=== PATIENT | female | born 1975 | race Caucasian/White ===

== ENCOUNTER → 2017-02-13 | Outpatient (CLI) | payer BC ==
[2017-02-13 18:55] LABS: CH 31.9; CHCM 34.1; HCT 42.4 % (34.0-46.0); HDW 2.47; HGB 14.5 gm/dL (11.4-16.0); MCH 32.2 pg (25.0-35.0); MCHC 34.3 g/dL (31.0-37.0); MCV 94.1 fL (80.0-100.0); Mean Platelet Volume 7.2; RBC 4.51 m/uL (3.80-5.40); RDW 12.8 % (11.5-15.5); WBC 13.4 k/uL (3.8-10.6)
== END ==
LOC: MMGSC 13:57
PROVIDERS: ATTEND Obstetrics & Gynecology
DX: N92.6 Irregular menstruation, unspecified (principal)
CPT/HCPCS: 36415; 82670; 83001; 84439; 84443; 85027

== ENCOUNTER → 2017-03-08 | Outpatient (CLI) | payer BC ==
--- NOTE | 2017-03-11 10:09 | MM ---
Reason for exam: screening (asymptomatic). Last mammogram was performed 1 year and 1 month ago. History: Taking hormonal contraceptives for 1 year. Physical Findings: A clinical breast exam by your physician is recommended on an annual basis and results should be correlated with mammographic findings. MG Screening Mammo w CAD Bilateral CC and MLO view(s) were taken. Prior study comparison: February 20, 2016, bilateral MG screening mammo w CAD. There are scattered fibroglandular densities. No significant changes when compared with prior studies. ASSESSMENT: Negative, BI-RAD 1 RECOMMENDATION: Routine screening mammogram of both breasts in 1 year.
== END | disposition home or self-care (01) ==
LOC: RADMAMWWP 16:17
PROVIDERS: ATTEND Obstetrics & Gynecology
DX: Z12.31 Encounter for screening mammogram for malignant neoplasm of breast (principal)

== ENCOUNTER → 2017-04-04 | Outpatient (CLI) | payer BC ==
[2017-04-04 16:46] LABS: Basophils # (A) 0.1 k/uL (0-0.2); Basophils % (A) 1 %; CHCM 33.8; Eosinophils # (A) 0.2 k/uL (0-0.7); Eosinophils % (A) 2 %; HCT 43.5 % (34.0-46.0); HDW 2.42; HGB 14.4 gm/dL (11.4-16.0); Luc % (Auto) 2; Lymphocytes # (A) 2.9 k/uL (1.0-4.8); Lymphocytes % (A) 26 %; MCH 32.3 pg (25.0-35.0); Mean Platelet Volume 7.3; Monocytes # (A) 0.6 k/uL (0-1.0); Monocytes % (A) 6 %; Neutrophils # (A) 7.5 k/uL (1.3-7.7); Neutrophils % (A) 65 %; RBC 4.44 m/uL (3.80-5.40); RDW 13.3 % (11.5-15.5); WBC 11.5 k/uL (3.8-10.6); WBC (Perox) 11.08
== END | disposition home or self-care (01) ==
LOC: LABPAT 16:12
PROVIDERS: ATTEND Obstetrics & Gynecology
DX: Z01.812 Encounter for preprocedural laboratory examination (principal)
CPT/HCPCS: 36415; 85025

== ENCOUNTER 2017-04-08 06:54 | Day surgery (SDC) | payer BC ==
[2017-04-05 12:52] VITALS: BMI 29.5
[~2017-04-08 06:54] MED LIST: HYDROmorphone 0.5 MG/0.5 ML SYRINGE IVP PRN; Pre Op ABX Message 1 EACH MISC MISCELLANE ONE
[2017-04-08] MEDS: LIDOCAINE 1% 20 ML VIAL (10MG/ML) FOR IV START INTRADERMA PRN ×2 (07:35→07:42)
[2017-04-08] MEDS: LACTATED RINGERS 1,000 ML IV SCH ×2 (07:40→10:22)
[2017-04-08] MEDS ORDERED: MIDAZOLAM 2 MG/2 ML VIAL IV ONE ×2 (07:40→07:43)
[2017-04-08] MEDS: DEXAMETHASONE SOD PHOSPHATE 10 MG/ML 1 ML VIAL IV ONE ×2 (07:40→07:43)
[2017-04-08] MEDS: SCOPOLAMINE 1.5MG/72HR PATCH TRANSDERM ONE ×2 (07:40→07:44)
[2017-04-08] MEDS: ONDANSETRON 4 MG/2 ML VIAL IVP ONE ×2 (07:40→07:43)
[2017-04-08] MEDS ORDERED: PROPOFOL 10 MG/ML 20 ML VIAL IV ONE (08:00)
[2017-04-08] MEDS ORDERED: fentaNYL (PF) 50 MCG/ML 2 ML AMP ONE (08:00)
[2017-04-08] MEDS ORDERED: MIDAZOLAM 2 MG/2 ML VIAL ONE (08:00)
[2017-04-08] MEDS ORDERED: KETOROLAC 30 MG/ML 1 ML VIAL ONE (08:00)
[2017-04-08] MEDS ORDERED: LIDOCAINE 1% INJ 10MG/ML (20 ML MDV) ONE (08:00)
[2017-04-08] MEDS ORDERED: IODINE/POTASS IOD (LUGOLS) BTL TOPICAL ONE (08:17)
[2017-04-08] MEDS ORDERED: BUPIVACAIN-EPI 0.25%-1:200,000 30 ML VIAL SQ ONE ×2 (08:17)
[2017-04-08] MEDS ORDERED: FERRIC SUBSULFATE (MONSELS) JAR TOPICAL ONE (08:44)
--- NOTE | 2017-04-08 08:51 | P.OP ---
Date of Procedure: 04/08/17 Preoperative Diagnosis: CIN3 Postoperative Diagnosis: Same Procedure(s) Performed: Cervical cold knife cone biopsy Anesthesia: MAC Surgeon: Alice Rocha Estimated Blood Loss (ml): 50 IV fluids (ml): 200 Urine output (ml): 10 Pathology: other (Cervical cone biopsy) Condition: stable Disposition: PACU Operative Findings: Large, patulous cervix with wide transformation zone. IUD in place. Third degree cervical uterine prolapse. Description of Procedure: After the patient and her family were met in the preoperative holding area and all questions were answered, she was taken to the operating room where anesthetic was administered without incident. She was then positioned, prepped and draped in the dorsal lithotomy position. Bladder was drained for a small amount of urine. Weighted speculum was placed in the vagina and the cervix was grasped anteriorly with a single-tooth tenaculum. Paracervical block with lidocaine plus epinephrine was placed. IUD strings were noted. Stay sutures were placed at the 3 and 9 o'clock position using 2-0 Vicryl. Lugol solution was applied to the cervix. Of note the cervix is quite large and patulous. There was third degree cervical uterine prolapse noted. The transformation zone was very easily visualized. 11 blade scalpel was utilized to incise the cervix immediately lateral to the transformation zone circumferentially. This was angled in in a conelike manner. With removal of the IUD was also incidentally removed. The uterus was sounded at this point to an additional depth of 7 cm. The IUD was bathed in Betadine solution and was reinserted without difficulty. Electrocautery was then utilized at the base of the cone biopsy which was quite large. This controlled most of the bleeding however 3 additional small phjled-ti-tjwul sutures were placed from the 3:00 to 10 o' clock position to control bleeding. Hemostasis was then noted. Monsel solution was then applied to the entire base of the cone biopsy. Stay sutures were tied down. All counts reported to me as correct by the operating room staff. The patient was awoken from anesthetic without incident and transported to the recovery area in stable condition.
[2017-04-08 09:02] VITALS: RESP 16; TEMP 97
[2017-04-08 10:13] VITALS: BP 133/71; PULSE 84
== END 2017-04-08 11:20 | disposition home or self-care (01) ==
LOC: OR 06:54
PROVIDERS: ATTEND Obstetrics & Gynecology
DX: D06.0 Carcinoma in situ of endocervix (principal); N81.2 Incomplete uterovaginal prolapse; Z97.5 Presence of (intrauterine) contraceptive device
CPT/HCPCS: 57520; 81025; 88307; J2250; J1100; J2405; J2001; J3010; J1885; J2704

== ENCOUNTER → 2017-05-15 | Outpatient (CLI) | payer BC ==
[2017-05-15 18:45] LABS: Basophils # (A) 0.1 k/uL (0-0.2); Basophils % (A) 1 %; CH 31.2; CHCM 32.9; Eosinophils # (A) 0.2 k/uL (0-0.7); Eosinophils % (A) 2 %; HCT 41.3 % (34.0-46.0); HDW 2.42; Luc % (Auto) 1; Lymphocytes # (A) 2.8 k/uL (1.0-4.8); Lymphocytes % (A) 28 %; MCH 32.3 pg (25.0-35.0); MCHC 33.9 g/dL (31.0-37.0); MCV 95.4 fL (80.0-100.0); Mean Platelet Volume 7.7; Monocytes # (A) 0.4 k/uL (0-1.0); Monocytes % (A) 4 %; Neutrophils # (A) 6.6 k/uL (1.3-7.7); Neutrophils % (A) 65 %; RBC 4.33 m/uL (3.80-5.40); RDW 14.1 % (11.5-15.5); WBC 10.1 k/uL (3.8-10.6); WBC (Perox) 10.15
[2017-05-15 18:47] LABS: ALT 35 U/L (9-52); AST 28 U/L (14-36); Alkaline Phosphatase 48 U/L (38-126); Anion Gap 11 mmol/L; Blood Urea Nitrogen 14 mg/dL (7-17); Calcium 9.1 mg/dL (8.4-10.2); Carbon Dioxide 24 mmol/L (22-30); Chloride 103 mmol/L (98-107); Glucose 134 mg/dL (74-99); Non-African American GFR(MDRD) >60 (>60 ml/min/1.73 sqM); Potassium 3.9 mmol/L (3.5-5.1); Sodium 138 mmol/L (137-145); Total Protein 6.9 g/dL (6.3-8.2)
== END | disposition home or self-care (01) ==
LOC: MMGSC 13:38
PROVIDERS: ATTEND Obstetrics & Gynecology
DX: Z01.812 Encounter for preprocedural laboratory examination (principal); C53.9 Malignant neoplasm of cervix uteri, unspecified
CPT/HCPCS: 36415; 80053; 85025

== ENCOUNTER → 2018-05-19 | Outpatient (CLI) | payer BC ==
--- NOTE | 2018-05-21 10:10 | MM ---
Reason for exam: screening (asymptomatic). Last mammogram was performed 1 year and 2 months ago. History: Taking hormonal contraceptives for 1 year. Physical Findings: A clinical breast exam by your physician is recommended on an annual basis and results should be correlated with mammographic findings. MG Screening Mammo w CAD Bilateral CC and MLO view(s) were taken. Prior study comparison: March 08, 2017, bilateral MG screening mammo w CAD. February 20, 2016, bilateral MG screening mammo w CAD. There are scattered fibroglandular densities. No significant changes when compared with prior studies. ASSESSMENT: Benign, BI-RAD 2 RECOMMENDATION: Routine screening mammogram of both breasts in 1 year.
== END ==
LOC: RADMAMWWP 16:27
PROVIDERS: ATTEND Obstetrics & Gynecology
DX: Z12.31 Encounter for screening mammogram for malignant neoplasm of breast (principal)
CPT/HCPCS: 77067

== ENCOUNTER → 2019-12-08 | Outpatient (CLI) | payer BC ==
--- NOTE | 2019-12-10 11:17 | MM ---
Reason for exam: screening (asymptomatic). Last mammogram was performed 1 year and 7 months ago. History: Patient has history of other cancer at age 41. Took hormonal contraceptives for 1 year beginning at age 28. Physical Findings: A clinical breast exam by your physician is recommended on an annual basis and results should be correlated with mammographic findings. MG Screening Mammo w CAD Bilateral CC and MLO view(s) were taken. Prior study comparison: May 19, 2018, bilateral MG screening mammo w CAD. March 08, 2017, bilateral MG screening mammo w CAD. There are scattered fibroglandular densities. There is no discrete abnormality. ASSESSMENT: Negative, BI-RAD 1 RECOMMENDATION: Routine screening mammogram of both breasts in 1 year.
== END | disposition home or self-care (01) ==
LOC: RADMAMWWP 08:10
PROVIDERS: ATTEND Obstetrics & Gynecology
DX: Z12.31 Encounter for screening mammogram for malignant neoplasm of breast (principal)
CPT/HCPCS: 77067

== ENCOUNTER → 2021-01-19 | Outpatient (CLI) | payer BC ==
--- NOTE | 2021-01-23 08:16 | MM ---
Reason for exam: screening (asymptomatic). Last mammogram was performed 1 year and 1 month ago. History: Patient is postmenopausal and has history of other cancer at age 42. Took hormonal contraceptives for 1 year beginning at age 28. Physical Findings: A clinical breast exam by your physician is recommended on an annual basis and results should be correlated with mammographic findings. MG 3D Screening Mammo W/Cad Bilateral CC and MLO view(s) were taken. Prior study comparison: December 08, 2019, bilateral MG screening mammo w CAD. May 19, 2018, bilateral MG screening mammo w CAD. There are scattered fibroglandular densities. There is no discrete abnormality. No significant changes when compared with prior studies. ASSESSMENT: Negative, BI-RAD 1 RECOMMENDATION: Routine screening mammogram of both breasts in 1 year.
== END | disposition home or self-care (01) ==
LOC: RADMAMWWP 09:24
PROVIDERS: ATTEND Obstetrics & Gynecology
DX: Z12.31 Encounter for screening mammogram for malignant neoplasm of breast (principal); Z78.0 Asymptomatic menopausal state; Z85.9 Personal history of malignant neoplasm, unspecified; Z79.3 Long term (current) use of hormonal contraceptives
CPT/HCPCS: 77063; 77067

== ENCOUNTER → 2022-02-23 | Outpatient (CLI) | payer BC ==
--- NOTE | 2022-02-27 09:34 | MM ---
Reason for Exam: Screening (asymptomatic). Last mammogram was performed 1 year(s) and 2 month(s) ago. Patient History: Menarche at age 13. First Full-Term at age 27. Left ovary removed at age 42. Right ovary removed at age 42. Hysterectomy at age 42. Postmenopausal. Patient has history of breast feeding. Other cancer, age 42. Hormonal Contraceptives for 1 year from age 28 until age 29. Risk Values: Gina 5 year model risk: 0.9%. NCI Lifetime model risk: 10.5%. Prior Study Comparison: 02/20/2016 Bilateral Screening Mammogram, [facility]. 03/08/2017 Bilateral Screening Mammogram, [facility]. 05/19/2018 Bilateral Screening Mammogram, [facility]. 12/08/2019 Bilateral Screening Mammogram, [facility]. 01/19/2021 Bilateral Screening Mammogram, [facility]. Tissue Density: There are scattered fibroglandular densities. Findings: Analyzed By CAD. No suspicious groups of microcalcifications, spiculated or lobular masses, architectural distortion or other secondary signs of malignancy are mammographically apparent. Overall Assessment: Negative, BI-RAD 1 Management: Screening Mammogram of both breasts in 1 year. A negative mammogram report should not preclude additional follow up of suspicious palpable abnormalities. Patient should continue monthly self breast exam. A clinical breast exam by your physician is recommended on an annual basis and results should be correlated with mammographic findings. Electronically signed and approved by: Isma Larson D.O. Radiologis
== END | disposition home or self-care (01) ==
LOC: RADMAMWWP 11:30
PROVIDERS: ATTEND Obstetrics & Gynecology
DX: Z12.31 Encounter for screening mammogram for malignant neoplasm of breast (principal); Z78.0 Asymptomatic menopausal state; Z85.89 Personal history of malignant neoplasm of other organs and systems
CPT/HCPCS: 77063; 77067

== ENCOUNTER → 2023-07-08 | Outpatient (CLI) | payer BC ==
--- NOTE | 2023-07-09 10:18 | MM ---
Reason for Exam: Screening (asymptomatic). Last mammogram was performed 1 year(s) and 4 month(s) ago. Patient History: Menarche at age 13. First Full-Term at age 27. Left ovary removed at age 42. Right ovary removed at age 42. Hysterectomy at age 42. Postmenopausal. Patient has history of breast feeding. Other cancer, age 42. Hormonal Contraceptives for 1 year from age 28 until age 29. Risk Values: Gina 5 year model risk: 1.0%. NCI Lifetime model risk: 10.3%. Prior Study Comparison: 12/08/2019 Bilateral Screening Mammogram, [facility]. 01/19/2021 Bilateral Screening Mammogram, [facility]. 02/23/2022 Bilateral MG 3D screening mammo w/cad, [facility]. Tissue Density: The breast tissue is almost entirely fat. Findings: Analyzed By CAD. There is no suspicious group of microcalcifications or new suspicious mass. Overall Assessment: Negative, BI-RAD 1 Management: Screening Mammogram of both breasts in [address] [facility] will attempt to contact patient to return for supplemental views and ultrasound if indicated. Patient should continue monthly self-breast exams. A clinical breast exam by your physician is recommended on an annual basis. This exam should not preclude additional follow-up of suspicious palpable abnormalities. Note on Gina scores and lifetime risk: 1. A Gina score greater than 3% is considered moderate risk. If this is the case, consider specialist referral to assess eligibility for a risk reducing agent. 2. If overall lifetime risk for the development of breast cancer is 20% or higher, the patient may qualify for future screening with alternating mammogram and breast MRI. Electronically signed and approved by: Jose Schmitt DO
== END | disposition home or self-care (01) ==
LOC: RADMAMWWP 16:28
PROVIDERS: ATTEND Obstetrics & Gynecology
DX: Z12.31 Encounter for screening mammogram for malignant neoplasm of breast (principal); Z78.0 Asymptomatic menopausal state
CPT/HCPCS: 77063; 77067

== ENCOUNTER → 2024-08-14 | Outpatient (CLI) | payer BC ==
--- NOTE | 2024-08-17 07:18 | MM ---
Reason for Exam: Screening (asymptomatic). Last mammogram was performed 1 year(s) and 1 month(s) ago. Patient History: Menarche at age 13. First Full-Term at age 27. Left ovary removed at age 42. Right ovary removed at age 42. Hysterectomy at age 42. Postmenopausal. Patient has history of breast feeding. Other cancer, age 42. Hormonal Contraceptives for 1 year from age 28 until age 29. Risk Values: Gina 5 year model risk: 1.0%. NCI Lifetime model risk: 10.2%. Prior Study Comparison: 01/19/2021 Bilateral Screening Mammogram, [facility]. 02/23/2022 Bilateral MG 3D screening mammo w/cad, [facility]. 07/08/2023 Bilateral MG 3D screening mammo w/cad, [facility]. Tissue Density: The breasts are heterogeneously dense, which may obscure small masses. Findings: Analyzed By CAD. Right breast: There is no suspicious group of microcalcifications or new suspicious mass. Left breast: There is no suspicious group of microcalcifications or new suspicious mass. Overall Assessment: Negative, BI-RAD 1 Management: Screening Mammogram of both breasts in [address] [facility] will attempt to contact patient to return for supplemental views and ultrasound if indicated. Patient should continue monthly self-breast exams. A clinical breast exam by your physician is recommended on an annual basis. This exam should not preclude additional follow-up of suspicious palpable abnormalities. Note on Gina scores and lifetime risk: 1. A Gina score greater than 3% is considered moderate risk. If this is the case, consider specialist referral to assess eligibility for a risk reducing agent. 2. If overall lifetime risk for the development of breast cancer is 20% or higher, the patient may qualify for future screening with alternating mammogram and breast MRI. [facility], , 08/17/2024 7:15 AM. Electronically signed and approved by: Jose Schmitt DO
== END | disposition home or self-care (01) ==
LOC: RADMAMWWP 16:14
PROVIDERS: ATTEND Obstetrics & Gynecology
DX: Z12.31 Encounter for screening mammogram for malignant neoplasm of breast (principal); R92.333 Mammographic heterogeneous density, bilateral breasts; Z78.0 Asymptomatic menopausal state; Z92.0 Personal history of contraception
CPT/HCPCS: 77063; 77067

== ENCOUNTER 2024-08-27 10:15 | Inpatient (IN) | payer BC ==
--- NOTE | 2024-08-27 10:25 | ED ---
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 She states that the pressure radiated into her jaw described as a tightness and into her throat. she initially felt short of breath however, this quickly resolved. At the time of the event she denied associated diaphoresis or nausea. Currently, states that the pressure has improved however is still mildly present. Over the past few weeks she denies dyspnea on exertion, peripheral edema, orthopnea, or hemoptysis. she also denies recent prolonged travel, recent surgeries, history of DVT or PE, family history of sudden cardiac . States that she has been under immense stress with her job. Additionally, had a recent appointment with her dentist where she was found to be hypertensive but is not taking medications for this and has not in the past. - Related Data Home Medications Medication Instructions Recorded Confirmed Multivitamins, Thera [Multivitamin 1 tab PO DAILY 04/05/17 08/27/24 (formulary)] Vitamin C/Biotin [Hair, Skin and 1 tab PO DAILY 08/27/24 08/27/24 Nails Chew] Vitamin D3 (Unknown Strength) 1 dose PO DAILY 08/27/24 08/27/24 Allergies Allergy/AdvReac Type Severity Reaction Status Date / Time No Known Allergies Allergy Verified 08/27/24 11:16 Review of Systems ROS Statement: Those systems with pertinent positive or pertinent negative responses have been documented in the HPI. ROS Other: All systems not noted in ROS Statement are negative. Past Medical History Past Medical History: No Reported History History of Any Multi-Drug Resistant Organisms: None Reported Past Surgical History: Hysterectomy Past Psychological History: No Psychological Hx Reported Smoking Status: Never smoker Past Alcohol Use History: None Reported Past Drug Use History: None Reported General Exam Limitations: no limitations General appearance: alert, in no apparent distress ENT exam: Present: normal exam, mucous membranes moist Neck exam: Present: normal inspection. Absent: tenderness, meningismus, lymphadenopathy Respiratory exam: Present: normal lung sounds bilaterally. Absent: respiratory distress, wheezes, rales, rhonchi, stridor Cardiovascular Exam: Present: regular rate, normal rhythm, normal heart sounds. Absent: systolic murmur, diastolic murmur, rubs, gallop, clicks GI/Abdominal exam: Present: soft, normal bowel sounds. Absent: distended, tenderness, guarding, rebound, rigid Extremities exam: Present: normal inspection, full ROM, normal capillary refill. Absent: tenderness, pedal edema, joint swelling, calf tenderness Back exam: Present: normal inspection Course Vital Signs 08/27/24 08/27/24 10:16 12:05 Temperature 97.9 F Pulse Rate 85 54 L Respiratory 22 18 Rate Blood Pressure 159/104 132/74 O2 Sat by Pulse 98 Oximetry Chest Pain MDM - MDM Was pt. sent in by a medical professional or institution (, PA, SKIP LOADER, urgent care, hospital, or intermediate...) When possible be specific @ -No Did you speak to anyone other than the patient for history (EMS, parent, family, police, friend...)? What history was obtained from this source @ -No Did you review nursing and triage notes (agree or disagree)? Why? @ -I reviewed and agree with nursing and triage notes Were old charts reviewed (outside hosp., previous admission, EMS record, old EKG, old radiological studies, urgent care reports/EKG's, intermediate records)? Report findings @ -No old charts were reviewed Differential Diagnosis (chest pain, altered mental status, abdominal pain women, abdominal pain men, vaginal bleeding, weakness, fever, dyspnea, syncope, headache, dizziness, GI bleed, back pain, seizure, CVA, palpatations, mental he alth, musculoskeletal)? @ -Differential Chest Pain: Stable Angina, Unstable Angina, STEMI, NSTEMI Aortic Dissection, Pneumothorax, Musculoskeletal, Esophageal Spasm GERD, Cholecystitis, Pancreatitis, Zoster, this is not meant to be an all-inclusive list. EKG interpreted by me (3pts min.). @ -Completed at 1023 sinus rhythm with a ventricular rate of 66, SD interval 148, QRS 84, QTc 418. There is noted T wave inversion in lead V2 X-rays interpreted by me (1pt min.). @ -Chest x-ray completed with no acute cardiopulmonary process or disease CT interpreted by me (1pt min.). @ -None done U/S interpreted by me (1pt. min.). @ -None done What testing was considered but not performed or refused? (CT, X-rays, U/S, labs)? Why? @ -None What meds were considered but not given or refused? Why? @ -None Did you discuss the management of the patient with other professionals (professionals i.e. Dr., PA, SKIP LOADER, lab, RT, psych nurse, social welfare clerk, lusterer, teacher, purchasing officer, disease case manager)? Give summary @ -Case discussed with nancy internal medicine physician, Dr. Olivares, for ACS NSTEMI. Cardiology on consult. Was smoking cessation discussed for >3mins.? @ -No Was critical care preformed (if so, how long)? @ -greater than 30 minutes of medical care time was completed due to NSTEMI Were there social determinants of health that impacted care today? How? (Homelessness, low income, unemployed, alcoholism, drug addiction, transportation, low edu. Level, literacy, decrease access to med. care, half-way, rehab)? @ -No Was there de-escalation of care discussed even if they declined (Discuss DNR or withdrawal of care, Hospice)? DNR status @ -No What co-morbidities impacted this encounter? (DM, HTN, Smoking, COPD, CAD, Cancer, CVA, ARF, Chemo, Hep., AIDS, mental health diagnosis, sleep apnea, morbid obesity)? @ -None Was patient admitted / discharged? Hospital course, mention meds given and route, prescriptions, significant lab abnormalities, going to OR and other pertinent info. @ -Admitted. 48-year-old female presenting to emergency department via EMS for complaints of chest pressure. Overall patient is well-appearing. Her initial vitals are noted to be hypertensive with a blood pressure of 159/104, nontachycardic. EKG sinus rhythm with no obvious ST segment changes. Concern for ACS she is provided with aspirin. She was offered pain medication however declined. Chest x-ray is unremarkable. Laboratory testing is remarkable for a troponin of 0.136 correlating with an NSTEMI. viral testing, CMP, coagulation profile and CBC within normal limits. Patient has been informed of results from today's findings and recommend that she be admitted for cardiac evaluation in addition to trending troponin, patient agrees. case discussed with nancy physician, Dr. Olivares for admission, cardiology on consult. She is placed on low intensity heparin drip. Case discussed with Dr. Chen Undiagnosed new problem with uncertain prognosis? @ -No Drug Therapy requiring intensive monitoring for toxicity (Heparin, Nitro, Insulin, Cardizem)? @ -No Were any procedures done? @ -No Diagnosis/symptom? @ -NSTEMI Acute, or Chronic, or Acute on Chronic? @ -acute Uncomplicated (without systemic symptoms) or Complicated (systemic symptoms)? @ -Complicated Side effects of treatment? @ -No Exacerbation, Progression, or Severe Exacerbation? @ -No Poses a threat to life or bodily function? How? (Chest pain, USA, SC, pneumonia, PE, COPD, DKA, ARF, appy, cholecystitis, CVA, Diverticulitis, Homicidal, Suicidal, threat to staff... and all critical care pts) @ -yes, ACS has possibility to lead to fatal arrhythmia. Disposition Clinical Impression: NSTEMI (non-ST elevated myocardial infarction) Disposition: ADMITTED IP TO THIS [facility] Condition: Serious Referrals: None,Stated [Primary Care Provider] - 1-2 days Decision to Admit Reason: Admit from EC Decision Date: 08/27/24 Decision Time: 12:02
[2024-08-27] MEDS: ASPIRIN 81 MG PO STA (10:48)
[2024-08-27 10:53] LABS: Basophils % (A) 0 %; Eosinophils # (A) 0.1 k/uL (0-0.7); Eosinophils % (A) 2 %; HCT 43.5 % (34.0-46.0); HGB 14.6 gm/dL (11.4-16.0); Lymphocytes # (A) 2.5 k/uL (1.0-4.8); Lymphocytes % (A) 26 %; MCH 31.1 pg (25.0-35.0); MCHC 33.5 g/dL (31.0-37.0); MCV 92.8 fL (80.0-100.0); Mean Platelet Volume 7.4; Monocytes # (A) 0.5 k/uL (0-1.0); Monocytes % (A) 5 %; Neutrophils # (A) 6.2 k/uL (1.3-7.7); Neutrophils % (A) 64 %; Platelet Count 277 k/uL (150-450); RBC 4.69 m/uL (3.80-5.40); RDW 12.9 % (11.5-15.5); WBC 9.6 k/uL (3.8-10.6)
[2024-08-27 11:03] LABS: ALT 26 U/L (4-34); African American GFR (CKD) >90 (>60 ml/min/1.73 sqM); Anion Gap 13 mmol/L; Blood Urea Nitrogen 12 mg/dL (7-17); Calcium 9.5 mg/dL (8.4-10.2); Carbon Dioxide 20 mmol/L (22-30); Chloride 104 mmol/L (98-107); Glucose 98 mg/dL (74-99); Non-African American GFR(CKD) >90 (>60 ml/min/1.73 sqM); Sodium 137 mmol/L (137-145); Total Bilirubin 1.5 mg/dL (0.2-1.3)
--- NOTE | 2024-08-27 11:18 | XR ---
EXAMINATION TYPE: XR chest 2V DATE OF EXAM: 08/27/2024 10:59 AM COMPARISON: None CLINICAL INDICATION: Female, 48 years old with history of Chest Pain; TECHNIQUE: XR chest 2V Frontal and lateral views of the chest. FINDINGS: Lungs/Pleura: There is no evidence of pleural effusion, focal consolidation, or pneumothorax. Pulmonary vascularity: Unremarkable. Heart/mediastinum: Cardiomediastinal silhouette is unremarkable. Musculoskeletal: No acute osseous pathology. IMPRESSION: No acute cardiopulmonary disease/process. [facility], , 08/27/2024 11:16 AM
[2024-08-27 11:21] LABS: INR 0.9 (<1.2); Prothrombin Time 10.4 sec (10.0-12.5)
[2024-08-27 11:23] LABS: AST 36 U/L (14-36); Albumin 4.5 g/dL (3.5-5.0); Alkaline Phosphatase 34 U/L (38-126); Magnesium 2.1 mg/dL (1.6-2.3); Potassium 4.7 mmol/L (3.5-5.1); Total Protein 7.4 g/dL (6.3-8.2)
[2024-08-27 11:30] LABS: Influenza A Not Detected (Not Detectd); Influenza B Not Detected (Not Detectd); RSV Not Detected (Not Detectd)
[2024-08-27] MEDS ORDERED: HEPARIN SODIUM 1,000 UN/ML (10ML VL) IV PRN (11:48)
[2024-08-27] MEDS: HEPARIN SODIUM 1,000 UN/ML (10ML VL) IV ONE (12:02)
[2024-08-27] MEDS: HEPARIN SOD,PORK IN 0.45% NACL 25,000 UNIT in 0.45% NACL 1 250ML.BAG IV SCH (12:03)
[2024-08-27] MEDS ORDERED: NALOXONE 0.4 MG/ML 1 ML VIAL IV PRN (12:05)
[2024-08-27] MEDS ORDERED: MORPHINE SULFATE 4 MG/ML SYRINGE IV PRN (12:05)
[2024-08-27] MEDS ORDERED: NITROGLYCERIN SL TABS 0.4 MG TAB SUBLINGUAL PRN (14:24)
[2024-08-27] MEDS ORDERED: ALPRAZolam 0.5 MG TAB PO PRN (14:27)
--- NOTE | 2024-08-27 14:32 | P.CRDCN ---
History of Present Illness Consult date: 08/27/24 History of present illness: HISTORY OF PRESENTING ILLNESS: 48-year-old female with no prior cardiovascular history or any significant medical history presents with a Hospital because of substernal chest pressure. Patient works as a flying teacher and around 8:30 AM she started having substernal chest heaviness which she describes as pressure-like sensation which is radiating to her jaw. The symptoms lasted for around 2 hours when she presented to the ER she received 4 aspirin send that subsided her pain from 8 over 10-3/10 in intensity. She still having some substernal chest heaviness like symptoms. Her troponins were elevated at 0.136, other labs were essentially within normal limits. Her chest x-ray does not show any significant pulmonary congestion or consolidation. Her EKG shows sinus rhythm with subtle ST changes in inferior lead which should not be ignored. She denies any prior history of bleeding problems. She had cervical cancer status post hysterectomy. No chronic complication during her pregnancies. Currently she is postmenopausal. No strokes no family history of premature coronary disease sudden cardiac . She denies any smoking recreational drug use marijuana use or alcohol use REVIEW OF SYSTEMS: 14 point review of system is negative except what is mentioned above in HPI. PHYSICAL EXAMINATION: Neck: Brisk carotid upstroke, no jugular venous distention. Lungs: Clear to auscultation. Heart: Regular rate and rhythm, S1-S2, , no murmur or rub. Abdomen: Soft nontender, positive bowel sounds. Extremities: No edema, intact distal pulses. Neuro: Alert, oritented, no focal deficits. Detailed neuro exam was not performed. ASSESSMENT: # Substernal chest pressure # NSTEMI with clinical suspicion of inferior ischemia PLAN: Start aspirin 81 mg, Lipitor 40 mg, bisoprolol 2.5 mg daily Sublingual nitroglycerin Plan for heart catheterization Omar Huntley MD, FACC, RPVI Thank you for allowing [facility] to participate in this patient's care. Feel free to reach out in case of any followup questions. Past Medical History Past Medical History: No Reported History History of Any Multi-Drug Resistant Organisms: None Reported Past Surgical History: Hysterectomy Past Psychological History: No Psychological Hx Reported Smoking Status: Never smoker Past Alcohol Use History: None Reported Past Drug Use History: None Reported Medications and Allergies Home Medications Medication Instructions Recorded Confirmed Type Multivitamins, Thera [Multivitamin 1 tab PO DAILY 04/05/17 08/27/24 History (formulary)] Vitamin C/Biotin [Hair, Skin and 1 tab PO DAILY 08/27/24 08/27/24 History Nails Chew] Vitamin D3 (Unknown Strength) 1 dose PO DAILY 08/27/24 08/27/24 History Allergies Allergy/AdvReac Type Severity Reaction Status Date / Time No Known Allergies Allergy Verified 08/27/24 11:16 Physical Exam Vitals: Vital Signs Temp Pulse Resp BP Pulse Ox 08/27/24 12:05 54 L 18 132/74 08/27/24 10:16 97.9 F 85 22 159/104 98 Intake and Output 08/26/24 08/27/24 08/27/24 22:59 06:59 14:59 Other: Weight 90.718 kg Results 08/27/24 10:38 08/27/24 10:38 Cardiac Enzymes 08/27/24 08/27/24 Range/Units 10:38 10:38 AST 36 (14-36) U/L Troponin I 0.136 H* (0.000-0.034) ng/mL Coagulation 08/27/24 Range/Units 10:38 PT 10.4 (10.0-12.5) sec APTT 27.0 (22.0-30.0) sec CBC 08/27/24 Range/Units 10:38 WBC 9.6 (3.8-10.6) k/uL RBC 4.69 (3.80-5.40) m/uL Hgb 14.6 (11.4-16.0) gm/dL Hct 43.5 (34.0-46.0) % Plt Count 277 (150-450) k/uL Comprehensive Metabolic Panel 08/27/24 Range/Units 10:38 Sodium 137 (137-145) mmol/L Potassium 4.7 (3.5-5.1) mmol/L Chloride 104 (98-107) mmol/L Carbon Dioxide 20 L (22-30) mmol/L BUN 12 (7-17) mg/dL Creatinine 0.67 (0.52-1.04) mg/dL Glucose 98 (74-99) mg/dL Calcium 9.5 (8.4-10.2) mg/dL AST 36 (14-36) U/L ALT 26 (4-34) U/L Alkaline Phosphatase 34 L (38-126) U/L Total Protein 7.4 (6.3-8.2) g/dL Albumin 4.5 (3.5-5.0) g/dL Current Medications Generic Name Dose Route Start Last Admin Trade Name Freq PRN Reason Stop Dose Admin Acetaminophen 650 mg 08/27/24 12:05 Acetaminophen Tab 325 Mg Tab PO Q6HR PRN Mild Pain or Fever > 100.5 Alprazolam 0.25 mg 08/27/24 14:27 Alprazolam 0.25 Mg Tab PO Q6HR PRN Mild Anxiety Alprazolam 0.5 mg 08/27/24 14:27 Alprazolam 0.5 Mg Tab PO Q6HR PRN Moderate Anxiety Heparin Sodium (Porcine) 0 unit 08/27/24 11:48 Heparin Sodium 1,000 Un/Ml (10ml Vl) IV PER PROTOCOL PRN Low PTT Protocol Heparin Sodium/Sodium Chloride 250 mls @ 10 mls/hr 08/27/24 12:00 08/27/24 12:03 25,000 unit/ Sodium Chloride IV 11.023 units/kg/hr .Q24H CLIFF 10 mls/hr Administration Protocol 11.023 UNITS/KG/HR Heparin Sodium (Porcine) 10, 1,001 mls @ 999 mls/hr 08/27/24 07:00 000 unit/ Sodium Chloride IRRIGATION 08/28/24 06:59 ONCE PRN INTRA-OP Heparin Sodium (Porcine) 2,500 250.5 mls @ 250 mls/hr 08/27/24 14:31 unit/ Sodium Chloride IRRIGATION 08/28/24 14:30 ONCE PRN INTRA-OP Morphine Sulfate 4 mg 08/27/24 12:05 Morphine Sulfate 4 Mg/Ml Syringe IV Q4HR PRN Severe Pain (Scale 7 to 10) Naloxone HCl 0.2 mg 08/27/24 12:05 Naloxone 0.4 Mg/Ml 1 Ml Vial IV Q2M PRN Opioid Reversal Nitroglycerin 0.4 mg 08/27/24 14:24 Nitroglycerin Sl Tabs 0.4 Mg Tab SUBLINGUAL Q5M PRN Chest Pain Nitroglycerin 0.4 mg 08/27/24 14:27 Nitroglycerin Sl Tabs 0.4 Mg Tab SUBLINGUAL Q5M PRN Chest Pain Intake and Output 08/26/24 08/27/24 08/27/24 22:59 06:59 14:59 Other: Weight 90.718 kg Patient Weight 08/28/24 06:59 Weight 90.718 kg 08/27/24 10:38 08/27/24 10:38
[2024-08-27] MEDS: ASPIRIN 325 MG TAB PO STA (14:34)
[2024-08-27] MEDS: ATORVASTATIN 80 MG TAB PO STA (14:38)
[2024-08-27] MEDS: NITROGLYCERIN SL TABS 0.4 MG TAB SUBLINGUAL PRN (14:38)
[2024-08-27 15:10] LABS: Magnesium 2.3 mg/dL (1.6-2.3)
[2024-08-27] MEDS: IV FLUID CONTINUATION 1,000 ML IV ONE (15:13)
[2024-08-27] MEDS: HEPARIN SODIUM,PORCINE (1 ML) 2,500 UNIT in SODIUM CHLORIDE 0.9% 250 ML IRRIGATION PRN (15:13)
[2024-08-27] MEDS: HEPARIN SODIUM,PORCINE 10,000 UNIT in SODIUM CHLORIDE 0.9% 1,000 ML IRRIGATION PRN (15:13)
[2024-08-27] MEDS: MIDAZOLAM 2 MG/2 ML VIAL IVP ONE (15:19)
[2024-08-27 15:20] LABS: NT-Pro-B-Type Natriuretic Pept 260 pg/mL
[2024-08-27] MEDS: fentaNYL (PF) 50 MCG/ML 2 ML AMP IVP ONE (15:21)
[2024-08-27] MEDS: LIDOCAINE 1% INJ 10MG/ML (20 ML MDV) SQ ONE (15:23)
[2024-08-27] MEDS: VERAPAMIL SYRINGE (5 MG/10 ML) INTRAARTER ONE (15:25)
[2024-08-27] MEDS: IOPAMIDOL-370 100ML BTL INJ ONE (15:42)
--- NOTE | 2024-08-27 16:13 | P.HPIM ---
History of Present Illness H&P Date: 08/27/24 Patient is a 48-year-old female with no active medical history, here for evaluation of chest pain. Patient reported that around 830 this morning she experienced substernal chest pressure that radiated to her jaw and her throat that lasted for about 2 hours with an intensity of 7-8/10 at maximum. At the time of admission, she admitted to still experiencing the same chest pressure with a reduced intensity. She denied dyspnea on exertion, peripheral edema, calf pain, orthopnea, nausea, vomiting, diaphoresis, palpitations, cough, fever, chills, recent illness, recent travel or recent hospitalization. She admitted to drinking 1 cup of coffee daily. Chest x-ray on admission showed no acute cardiopulmonary process EKG independently interpreted showed sinus rhythm with a rate of 66, normal axis, T wave inversions in lead III, and V2, QTc 418 MS. Labs on admission showed WBC 9.6, hemoglobin 14.6, platelet count 277,000, PT 10.4, INR 0.9, PTT 27, potassium 4.7, magnesium 2.1, creatinine 0.67, total bilirubin 1.5, AST 36, ALT 26, alk phos 34, troponin 0.136, albumin 4.5. Cepheid 4 negative. Vitals on admission showed temperature of 97.9, pulse rate 85, respiratory 22, blood pressure 159/104, O2 saturation 98% on room air. ED documentation reviewed. Heparin drip and high-dose aspirin and high intensity Lipitor initiated in the ED. Review of systems: Pertinent positives and negatives as discussed in HPI, a complete review of systems was performed and all other systems are negative. Family history: Patient denied any significant medical history within her family Social history: Tobacco: She is a never smoker Alcohol: Occasional alcohol intake Recreational drugs: Denies recreational or illicit drug use Travel: No recent prolonged travel Occupation: dramatic teacher Physical examination: Vital signs reviewed General: non toxic, no distress, appears at stated age, overweight Derm: no unusual rashes/lesions, warm Head: atraumatic, normocephalic, symmetric Eyes: EOMI, anicteric sclera, pupils equal round reactive to light ENT: Nose and ears atraumatic Neck: No cervical lymphadenopathy, trachea midline, supple Mouth: no lip lesion, mucus membranes moist Cardiovascular: S1S2 reg, no murmur Lungs: CTA bilateral, no rhonchi, no rales, no accessory muscle use Abdominal: soft, nondistended, nontender to palpation, no guarding Ext: muscle strength 5 out of 5 in all 4 extremities grossly, no gross muscle atrophy, no contractures, positive dorsalis pedis pulse bilateral, no edema Neuro: CN II-XI grossly intact, no gross focal neuro deficits Psych: Alert and oriented x 3, appropriate affect and mood Assessment/Plan: 48-year-old female with no active medical problems here for evaluation of chest pain. Troponins found elevated on labs and EKG changes not ed concerning for NSTEMI. #. Acute NSTEMI -EKG independently interpreted showed sinus rhythm with a rate of 66, normal axis, T wave inversions in lead III, and V2, QTc 418 MS -troponin elevated at 0.136 -Cardiac monitoring -Supplemental oxygen as needed -Heart healthy diet -Trend troponin -EKG as needed -Echocardiogram ordered -Continue heparin drip -Nitroglycerin prn for chest pain. 0.4 mg PO or Nitrobid topical -Given aspirin 325 mg once in the ED . Continue with aspirin 81 mg daily -Continue lipitor 40 mg daily -Check TSH, Lipid panel, A1c and Magnesium -Cardiology consulted #. Hyperbilirubinemia #. Metabolic acidosis, slightly high anion gap -Repeat CMP tomorrow F: Oral intake E: Monitor electrolytes and renal function N: Heart healthy diet A: Can self ambulate DVT ppx: Heparin drip Dispo: The patient is admitted with an anticipated greater than 2 midnight stay for evaluation of NSTEMI CODE STATUS: Full Discussed with: Patient Anticipated discharge place: To be determined Jaja Moreno MD PGY-1 IM Dictation was produced using [employer] dictation software. please excuse any gr ammatical, word or spelling errors. I have seen and evaluated the patient today. Discussed with the resident and agree with the residents finding and plan as documented in the resident's note. Changes highlighted in blue font. Past Medical History Past Medical History: No Reported History History of Any Multi-Drug Resistant Organisms: None Reported Past Surgical History: Hysterectomy Past Psychological History: No Psychological Hx Reported Smoking Status: Never smoker Past Alcohol Use History: None Reported Past Drug Use History: None Reported Medications and Allergies Home Medications Medication Instructions Recorded Confirmed Type Multivitamins, Thera [Multivitamin 1 tab PO DAILY 04/05/17 08/27/24 History (formulary)] Vitamin C/Biotin [Hair, Skin and 1 tab PO DAILY 08/27/24 08/27/24 History Nails Chew] Vitamin D3 (Unknown Strength) 1 dose PO DAILY 08/27/24 08/27/24 History Allergies Allergy/AdvReac Type Severity Reaction Status Date / Time No Known Allergies Allergy Verified 08/27/24 11:16 Physical Exam Vitals: Vital Signs Temp Pulse Resp BP Pulse Ox 08/27/24 12:05 54 L 18 132/74 08/27/24 10:16 97.9 F 85 22 159/104 98 Intake and Output 08/26/24 08/27/24 08/27/24 22:59 06:59 14:59 Other: Weight 90.718 kg Results CBC & Chem 7: 08/27/24 10:38 08/27/24 10:38 Labs: Abnormal Lab Results - Last 24 Hours (Table) 08/27/24 08/27/24 Range/Units 10:38 10:38 Carbon Dioxide 20 L (22-30) mmol/L Total Bilirubin 1.5 H (0.2-1.3) mg/dL Alkaline Phosphatase 34 L (38-126) U/L Troponin I 0.136 H* (0.000-0.034) ng/mL
[2024-08-27] MEDS: BISOPROLOL 5 MG TAB PO SCH (16:22)
[2024-08-27] MEDS: ATORVASTATIN 40 MG TAB PO SCH (19:50)
[2024-08-27] MEDS: ACETAMINOPHEN TAB 325 MG TAB PO PRN (22:54)
[2024-08-27] MEDS: ALPRAZolam 0.25 MG TAB PO PRN (22:54)
[2024-08-28 03:09] LABS: Chol/HDL Ratio 3.33 Ratio; VLDL Calculation 13.64 mg/dL (5.00-40.00)
[2024-08-28 03:10] LABS: LDL Cholesterol,Calculated 137.6 mg/dL (0.0-131.0)
[2024-08-28 07:14] LABS: Basophils # (A) 0.1 k/uL (0-0.2); Basophils % (A) 1 %; Eosinophils # (A) 0.2 k/uL (0-0.7); Eosinophils % (A) 2 %; HCT 42.8 % (34.0-46.0); HGB 13.5 gm/dL (11.4-16.0); Lymphocytes # (A) 2.5 k/uL (1.0-4.8); Lymphocytes % (A) 29 %; MCH 30.3 pg (25.0-35.0); MCHC 31.6 g/dL (31.0-37.0); MCV 95.9 fL (80.0-100.0); Mean Platelet Volume 6.8; Monocytes # (A) 0.5 k/uL (0-1.0); Monocytes % (A) 6 %; Neutrophils # (A) 5.1 k/uL (1.3-7.7); Neutrophils % (A) 60 %; Platelet Count 265 k/uL (150-450); RBC 4.46 m/uL (3.80-5.40); RDW 12.7 % (11.5-15.5); WBC 8.6 k/uL (3.8-10.6)
[2024-08-28 07:20] LABS: ALT 22 U/L (4-34); AST 28 U/L (14-36); African American GFR (CKD) >90 (>60 ml/min/1.73 sqM); Albumin 3.7 g/dL (3.5-5.0); Alkaline Phosphatase 35 U/L (38-126); Anion Gap 5 mmol/L; Blood Urea Nitrogen 13 mg/dL (7-17); Calcium 8.5 mg/dL (8.4-10.2); Carbon Dioxide 28 mmol/L (22-30); Chloride 105 mmol/L (98-107); Glucose 99 mg/dL (74-99); Non-African American GFR(CKD) 88 (>60 ml/min/1.73 sqM); Potassium 4.7 mmol/L (3.5-5.1); Sodium 138 mmol/L (137-145); Total Bilirubin 1.7 mg/dL (0.2-1.3); Total Protein 6.4 g/dL (6.3-8.2)
[2024-08-28] MEDS: ASPIRIN 81 MG PO SCH (08:31)
--- NOTE | 2024-08-28 10:11 | P.PN ---
Subjective Progress Note Date: 08/28/24 Patient is a 48-year-old female with no active medical history, here for evaluation of chest pain. Patient reported that around 830 this morning she experienced substernal chest pressure that radiated to her jaw and her throat that lasted for about 2 hours with an intensity of 7-8/10 at maximum. At the ti me of admission, she admitted to still experiencing the same chest pressure with a reduced intensity. She denied dyspnea on exertion, peripheral edema, calf pain, orthopnea, nausea, vomiting, diaphoresis, palpitations, cough, fever, chills, recent illness, recent travel or recent hospitalization. She admitted to drinking 1 cup of coffee daily. Chest x-ray on admission showed no acute cardiopulmonary process EKG independently interpreted showed sinus rhythm with a rate of 66, normal axis, T wave inversions in lead III, and V2, QTc 418 MS. Labs on admission showed WBC 9.6, hemoglobin 14.6, platelet count 277,000, PT 10.4, INR 0.9, PTT 27, potassium 4.7, magnesium 2.1, creatinine 0.67, total bilirubin 1.5, AST 36, ALT 26, alk phos 34, troponin 0.136, albumin 4.5. Cepheid 4 negative. Vitals on admission showed temperature of 97.9, pulse rate 85, respiratory 22, blood pressure 159/104, O2 saturation 98% on room air. 08/28/2024 patient seen and examined at bedside. Patient had heart catheter yesterday with no stent placement. Labs today WBC 8.6, hemoglobin 13.5, platelet count 2 65,000, sodium 138, potassium 4.7, bicarb 28, BUN 13, creatinine 0.8, A1c 5.7, magnesium 2.3. Total bilirubin 1.7, AST 28, ALT 22, alk phos 35. Lipid profile shows elevated cholesterol 216, elevated LDL 137 and HDL high at 64. TSH 0.923 Review of systems: Pertinent positives and negatives as discussed in HPI, a complete review of systems was performed and all other systems are negative. Pertinent imaging and labs reviewed. Physical examination: Vital signs reviewed General: non toxic, no distress, appears at stated age Derm: no unusual rashes/lesions, warm Head: atraumatic, normocephalic, symmetric Eyes: EOMI, anicteric sclera, pupils equal round reactive to light ENT: Nose and ears atraumatic Neck: No cervical lymphadenopathy, trachea midline, supple Mouth: no lip lesion, mucus membranes moist Cardiovascular: S1S2 reg, no murmur Lungs: CTA bilateral, no rhonchi, no rales, no accessory muscle use Abdominal: soft, nontender to palpation, no guarding Ext: muscle strength 5 out of 5 in all 4 extremities grossly, no gross muscle atrophy, no contractures, positive dorsalis pedis pulse bilateral, no edema Neuro: CN II-XI grossly intact, no gross focal neuro deficits Psych: Alert and oriented x3, appropriate affect and mood Assessment/Plan: 48-year-old female with no active medical problems here for evaluation of chest pain. Troponins found elevated on labs and EKG changes noted concerning for NSTEMI. #. Acute NSTEMI -EKG independently interpreted showed sinus rhythm with a rate of 66, normal axis, T wave inversions in lead III, and V2, QTc 418 MS -troponin elevated at 0.136 -> 1.890 -Cardiac monitoring -Supplemental oxygen as needed -Heart healthy diet -Trend troponin -EKG as needed -Echocardiogram ordered -Continue heparin drip -Nitroglycerin prn for chest pain. 0.4 mg PO or Nitrobid topical -Given aspirin 325 mg once in the ED . Continue with aspirin 81 mg daily -Continue lipitor 40 mg daily -A1c 5.7 -Lipid profile shows elevated cholesterol 216, elevated LDL 137 and HDL high at 64. -TSH 0.923 -Cardiology consulted #. Hyperbilirubinemia -Total bilirubin 1.7 -hepatic function test #. Metabolic acidosis, slightly high anion gap, resolved F: Oral intake E: Monitor electrolytes and renal function N: Heart healthy diet A: Can self ambulate DVT ppx: Heparin drip Jaja Moreno MD PGY-1/[employer] Dictation was produced using [employer] dictation software. please excuse any grammatical, word or spelling errors. I saw and evaluated the patient during the roque and critical portions of this encounter, and discussed the case in detail with the resident author of this note, I agree with the Assessment and Plan, and my changes, if any, are highlighted in blue. Highly anticipate discharge today, patient looks well on clinical exam, pending cardiology clearance Objective - Vital Signs Vital signs: Vital Signs Temp 98.5 F 08/27/24 20:00 Pulse 59 L 08/28/24 04:25 Resp 16 08/28/24 04:25 BP 108/69 08/28/24 04:25 Pulse Ox 98 08/28/24 04:25 FiO2 Intake & Output 08/27/24 08/27/24 08/28/24 06:59 18:59 06:59 Intake Total 562 10 Balance 562 10 Weight 90.718 kg 102.5 kg Intake: IV 322 10 Invasive Line 1 10 Oral 240 Other: Voiding Method Toilet # Voids 1 - Labs CBC & Chem 7: 08/28/24 06:46 08/28/24 06:46 Labs: Abnormal Lab Results - Last 24 Hours (Table) 08/27/24 08/27/24 08/27/24 Range/Units 10:38 10:38 14:00 APTT (22.0-30.0) sec Carbon Dioxide 20 L (22-30) mmol/L Total Bilirubin 1.5 H (0.2-1.3) mg/dL Alkaline Phosphatase 34 L (38-126) U/L Troponin I 0.136 H* 1.420 H* (0.000-0.034) ng/mL Cholesterol (0.00-200.00) mg/dL LDL Cholesterol, Calc (0.0-131.0) mg/dL HDL Cholesterol (40.00-60.00) mg/dL 08/27/24 08/27/24 08/27/24 Range/Units 14:00 17:22 17:22 APTT 59.5 H (22.0-30.0) sec Carbon Dioxide (22-30) mmol/L Total Bilirubin (0.2-1.3) mg/dL Alkaline Phosphatase (38-126) U/L Troponin I 1.890 H* (0.000-0.034) ng/mL Cholesterol 216.00 H (0.00-200.00) mg/dL LDL Cholesterol, Calc 137.6 H (0.0-131.0) mg/dL HDL Cholesterol 64.80 H (40.00-60.00) mg/dL
[2024-08-28 11:09] VITALS: BP 124/80; RESP 14; TEMP 98.4
[2024-08-28 11:18] LABS: Bilirubin, Delta 0.1 mg/dL (0.0-0.2); Bilirubin,Unconjugated 1.5 mg/dL (0.0-1.1); Total Bilirubin 1.6 mg/dL (0.2-1.3); Total Protein 6.9 g/dL (6.3-8.2)
--- NOTE | 2024-08-28 11:49 | CA ---
Transthoracic Echo Report Name: Lin Herndon Age: 48 Gender: F : 1975 Exam Date: 08/28/2024 09:34 Exam Location: [place] [facility] Ht (in): 69 Wt (lb): 200 Ordering Physician: Omar Huntley MD ([id number]) Attending/Referring Phys: Electrical Manufacturing Technician Chasity English RDCS Procedure CPT: Indications: nstemi Cardiac Hx: Technical Quality: Good Contrast 1: Total Dose (mL): Contrast 2: Total Dose (mL): MEASUREMENTS (Male / Female) Normal Values 2D ECHO LV Diastolic Diameter PLAX 4.3 cm 4.2 - 5.9 / 3.9 - 5.3 cm LV Systolic Diameter PLAX 2.7 cm IVS Diastolic Thickness 0.8 cm 0.6 - 1.0 / 0.6 - 0.9 cm LVPW Diastolic Thickness 0.8 cm 0.6 - 1.0 / 0.6 - 0.9 cm LV Relative Wall Thickness 0.4 LVOT Diameter 1.9 cm LV Diastolic Volume MOD BP 114.8 cm??? 67 - 155 / 56 - 104 cm??? LV Systolic Volume MOD BP 46.0 cm??? 22 - 58 / 19 - 49 cm??? LV Ejection Fraction MOD BP 59.9 % >= 55 % LV Cardiac Index MOD BP 1943.0 cm???/min???m??? LV Diastolic Volume MOD 4C 103.4 cm??? LV Systolic Volume MOD 4C 42.5 cm??? LV Ejection Fraction MOD 4C 58.9 % LV Cardiac Index MOD 4C 1719.6 cm???/min???m??? LV Diastolic Length 4C 8.3 cm LV Systolic Length 4C 6.6 cm LV Diastolic Volume MOD 2C 121.6 cm??? LV Systolic Volume MOD 2C 49.2 cm??? LV Ejection Fraction MOD 2C 59.6 % LV Cardiac Index MOD 2C 2046.8 cm???/min???m??? LV Diastolic Length 2C 8.9 cm LV Systolic Length 2C 6.7 cm LA Volume 38.4 cm??? 18 - 58 / 22 - 52 cm??? LA Volume Index 18.1 cm???/m??? 16 - 28 cm???/m??? Ascending Aorta Diameter 2.9 cm DOPPLER AV Peak Velocity 146.2 cm/s AV Peak Gradient 8.6 mmHg AV Mean Velocity 109.9 cm/s AV Mean Gradient 5.2 mmHg AV Velocity Time Integral 33.5 cm LVOT Peak Velocity 107.5 cm/s LVOT Peak Gradient 4.6 mmHg LVOT Velocity Time Integral 23.7 cm LVOT Stroke Volume 70.3 cm??? LVOT Stroke Volume Index 34.0 ml/m??? LVOT Cardiac Index 1985.8 cm???/min???m??? AV Area Cont Eq vti 2.1 cm??? AV Area Cont Eq pk 2.2 cm??? MV Area PHT 5.2 cm??? Mitral E Point Velocity 93.1 cm/s Mitral A Point Velocity 59.1 cm/s Mitral E to A Ratio 1.6 MV Deceleration Time 147.0 ms PV Peak Velocity 72.3 cm/s PV Peak Gradient 2.1 mmHg FINDINGS Left Ventricle Left ventricular ejection fraction is estimated at 55-60 %. Mildly increased left ventricular diastolic volume. Left ventricular wall thickness normal. No obvious regional wall motion abnormalities. Right Ventricle Normal right ventricular size and function. Unable to estimate the right ventricular systolic pressure. Right Atrium Normal right atrial size. Left Atrium Normal left atrial size. Mitral Valve Structurally normal mitral valve. No evidence for mitral valve prolapse. No mitral stenosis. Trace mitral regurgitation. Aortic Valve Trileaflet aortic valve. No aortic valve stenosis or regurgitation. Tricuspid Valve Structurally normal tricuspid valve. No tricuspid stenosis. Trace tricuspid regurgitation. Pulmonic Valve Structurally normal pulmonic valve. No pulmonic stenosis. No pulmonic regurgitation. Pericardium No pericardial effusion. Aorta Normal size aortic root and proximal ascending aorta. CONCLUSIONS Diagnosis: Non-Q wave myocardial infarction Normal LV size and systolic function without any segmental wall motion abnormalities Previewed by: Dr. Dawood Kelly MD (Electronically Signed) Final Date: 28 August 2024 11:48
[2024-08-28 14:16] VITALS: PULSE 62
--- NOTE | 2024-08-28 15:35 | P.CARDCATH ---
Date of Procedure: 08/27/24 Description of Procedure: DIAGNOSTIC CORONARY ANGIOGRAPHY and LEFT HEART CATH REPORT PROCEDURES PERFORMED: Left heart catheterization Selective coronary angiography Left ventriculography Moderate conscious sedation 25 mins [Ultrasound assisted] Right radial access INDICATION: NSTEMI and substernal chest pain BRIEF HPI: CONSENT: I have explained the procedural steps of above-mentioned procedures in layman's terms to the patient. I discussed the risks (including but not limited to stroke, emergent vascular or cardiac surgery or ), benefits and alternative therapies for the above-mentioned procedure. I discussed the risks of sedation/analgesia and blood product administration (if indicated). The patient has indicated understanding and acceptance of these risks. Conscious Sedation: Patient's ECG, heart rate, blood pressure, pulse oximetry were monitored throughout the duration of procedure under my direct supervision. 1 mg Versed and [50] mcg Fentanyl were used for induction of moderate conscious sedation. Total duration of moderate concious sedation 25 minutes. PROCEDURAL DETAILS: Patient was prepped and draped in sterile fashion. 1% lidocaine was infiltrated over the right radial artery. Right radial access was obtained via modified seldinger technique. [Ultrasound was used for radial access]. Medications: 5mg of verapamil was administed in the radial sheet. 4000 Units of Heparin was administed once the catheter reached the aortic root Wires and Catheter used: J wire was advanced under fluroscopy to get to aortic root. 5 macedonian JR 4 diagnostic catheter was utilized obtain left ventricular pressure and pressure gradint across aortic valve. 5 macedonian JR 4 diagnostic catheter was used to selectively engage the right coronary ostium. 5 macedonian JL 3.5 diagnostic catheter was utilized to selectively engage the left coronary ostium. Using a 5 Portuguese pigtail catheter left ventricular appendectomy was performed utilizing 36 mL of contrast Angiographic images were reviewed in detail. Catheter and wire were removed. Radial sheet was flushed. The right radial sheath was removed and a TR band was placed. Patent hemostasis was achieved. The patient tolerated the procedure well. Patient was transported back to the post catheterization holding area in stable condition. TECHNICAL DETAILS Total radiation: 180 mGy Total fluro time: 2.5 mins Total contrast used: Isovue [86 ml] Complications: [none] Estimated Blood loss: less than 15 ml HEMODYNAMICS: Aortic Pressure: 110/70 mmHg. LV pressure: 110/1 mmHg. LVEDP 10 mmHg. There was no significant gradient across the aortic valve. SELECTIVE CORONARY ARTERIOGRAPHY: LEFT MAIN: The left main is short and large caliber vessel. It bifurcates into the LAD and circumflex. Left main appears angiographically normal. LEFT ANTERIOR DESCENDING CORONARY ARTERY: LAD is a large caliber vessel and reaches up to the apex. Proximal and mid LAD base angiographically patent. It gives rise to diagonal branches which appears angiographically patent. Distal LAD near the apex appears to have a very small caliber and seems that there might be a spontaneous coronary artery dissection type 1. LEFT CIRCUMFLEX CORONARY ARTERY: It is nondominant vessel. LCx is small caliber and appears angiographicallly patent. It gives rise to small OM branch which appears angiographically patent. RIGHT CORONARY ARTERY: Dominant vessel. RCA is large caliber vessel. Proximal mid and distal RCA appears angiographically patent. Distal RCA gives rise to large PDA and PL branches which reaches up to the apex. They appear angiographically patent. LEFT VENTRICULOGRAPHY: Preserved LV size and systolic function with LVEF of 55% with no obvious regional wall motion abnormality. 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 Aspirin, Lipitor, low-dose losartan and low-dose beta-agnel for next 6 months. Obtain echocardiogram Performing Physician Omar Huntley MD, FACC, RPVI Thank you for allowing [facility] to participate in this patient's care. Feel free to reach out in case of any followup questions.
--- NOTE | 2024-08-28 15:38 | P.PN ---
Subjective Progress Note Date: 08/28/24 HISTORY OF PRESENTING ILLNESS: 48-year-old female with no prior cardiovascular history or any significant medical history presents to Hospital because of substernal chest pressure. Patient works as a kinder teacher and around 8:30 AM she started having substernal chest heaviness which she describes as pressure-like sensation which is radiating to her jaw. The symptoms lasted for around 2 hours when she presented to the ER she received 4 aspirin send that subsided her pain from 8 over 10-3/10 in intensity. She still having some substernal chest heaviness like symptoms. Her troponins were elevated at 0.136, other labs were essentially within normal limits. Her chest x-ray does not show any significant pulmonary congestion or consolidation. Her EKG shows sinus rhythm with subtle ST changes in inferior lead which should not be ignored. She denies any prior history of bleeding problems. She had cervical cancer status post hysterectomy. No chronic complication during her pregnancies. Currently she is postmenopausal. No strokes no family history of premature coronary disease sudden cardiac . She denies any smoking recreational drug use marijuana use or alcohol use Progress note 08/28/2024 Yesterday patient underwent cardiac anticoagulation which showed possible conc erns of distal LAD scad. There was no obvious obstructive coronary artery disease noticed in other coronary artery distribution. On left-ventricular graph there was preserved LV size and systolic function. Patient's echocardiogram shows normal LV size and systolic function with no obvious regional wall motion abnormality. There was no significant valvular dysfunction appreciated. PHYSICAL EXAMINATION: Neck: Brisk carotid upstroke, no jugular venous distention. Lungs: Clear to auscultation. Heart: Regular rate and rhythm, S1-S2, , no murmur or rub. Abdomen: Soft nontender, positive bowel sounds. Extremities: No edema, intact distal pulses. Neuro: Alert, oritented, no focal deficits. Detailed neuro exam was not performed. ASSESSMENT: # Substernal chest pressure # NSTEMI with clinical suspicion of inferior ischemia Pertinent cardiac testing HbA1c 5.7, LDL 137, TG 68, HDL 64, NT-proBNP normal at 260. Echo shows EF 55%, No obvious regional wall motion abnormality or any significant valvular dysfunction PLAN: At this time patient is cleared to be discharged from cardiovascular standpoint with recommended outpatient follow-up. Continue aspirin 81 mg, Lipitor 40 mg, bisoprolol 2.5 mg daily, losartan 12.5 mg daily Objective - Vital Signs Vital signs: Vital Signs Temp 98.4 F 08/28/24 11:08 Pulse 56 L 08/28/24 11:08 Resp 14 08/28/24 14:00 BP 124/80 08/28/24 11:08 Pulse Ox 96 08/28/24 11:08 FiO2 Intake & Output 08/27/24 08/28/24 08/28/24 18:59 06:59 18:59 Intake Total 562 10 240 Balance 562 10 240 Weight 90.718 kg 102.5 kg Intake: IV 322 10 Invasive Line 1 10 Oral 240 240 Other: Voiding Method Toilet Toilet # Voids 1 1 # Bowel Movements 0 - Labs CBC & Chem 7: 08/28/24 06:46 08/28/24 06:46 Labs: Abnormal Lab Results - Last 24 Hours (Table) 08/27/24 08/27/24 08/27/24 Range/Units 14:00 14:00 17:22 APTT 59.5 H (22.0-30.0) sec Total Bilirubin (0.2-1.3) mg/dL Unconjugated Bilirubin (0.0-1.1) mg/dL Alkaline Phosphatase (38-126) U/L Troponin I 1.420 H* (0.000-0.034) ng/mL Cholesterol 216.00 H (0.00-200.00) mg/dL LDL Cholesterol, Calc 137.6 H (0.0-131.0) mg/dL HDL Cholesterol 64.80 H (40.00-60.00) mg/dL 08/27/24 08/28/24 08/28/24 Range/Units 17:22 06:46 10:46 APTT (22.0-30.0) sec Total Bilirubin 1.7 H 1.6 H (0.2-1.3) mg/dL Unconjugated Bilirubin 1.5 H (0.0-1.1) mg/dL Alkaline Phosphatase 35 L (38-126) U/L Troponin I 1.890 H* (0.000-0.034) ng/mL Cholesterol (0.00-200.00) mg/dL LDL Cholesterol, Calc (0.0-131.0) mg/dL HDL Cholesterol (40.00-60.00) mg/dL
--- NOTE | 2024-08-28 16:00 | P.DS ---
Providers Date of admission: 08/27/24 11:35 Attending physician: Nakul Olivares Consults: 08/27/24 12:05 Consult Physician Routine Consulting Provider: Dayday Santoyo Consult Reason/Comments: NSTEMI Do you want consulting provider notified?: Yes, Notify in am Primary care physician: Stated None Hospital Course: Hospital Course: Patient is a 48-year-old female with no active medical history, here for evaluation of chest pain. Chest x-ray on admission showed no acute cardiopulmonary process EKG independently interpreted showed sinus rhythm with a rate of 66, normal axis, T wave inversions in lead III, and V2, QTc 418 MS. Labs on admission showed WBC 9.6, hemoglobin 14.6, platelet count 277,000, PT 10.4, INR 0.9, PTT 27, potassium 4.7, magnesium 2.1, creatinine 0.67, total bilirubin 1.5, AST 36, ALT 26, alk phos 34, troponin 0.136, albumin 4.5. Cepheid 4 negative. Vitals on admission showed temperature of 97.9, pulse rate 85, respiratory 22, blood pressure 159/104, O2 saturation 98% on room air. Patient was admitted for evaluation of acute NSTEMI. Ordered cardiac monitoring, trending troponins, supplemental oxygen, echocardiogram, heparin drip, nitroglycerin as needed, oral aspirin, oral Lipitor, A1c, lipid profile and TSH. Cardiology consulted. Patient was taken to [facility] and was found to have no obvious obstructive coronary artery disease there was noted possible concerns for distal LAD SCAD. Lipid profile showed elevated cholesterol, elevated LDL and high HDL. TSH was normal and A1c was normal at 5.7. Patient had elevated total bilirubin on admission however she did not present with symptoms of abdominal pain or jaundice and has no significant history. Patient cleared for discharge today by cardiology and was prescribed oral aspirin, atorvastatin, bisoprolol and losartan. She is advised to follow-up with cardiology and PCP on outpatient basis. Final Diagnosis: #. Acute NSTEMI #. Hyperbilirubinemia #. Metabolic acidosis, slightly high anion gap, resolved #. Hyperlipidemia Physical examination: Vital signs reviewed General: non toxic, no distress Derm: no unusual rashes/lesions, warm Head: atraumatic, normocephalic, symmetric Eyes: EOMI, anicteric sclera, pupils equal round reactive to light ENT: Nose and ears atraumatic Neck: No cervical lymphadenopathy, trachea midline, supple Mouth: no lip lesion, mucus membranes moist Cardiovascular: S1S2 reg, no murmur Lungs: CTA bilateral, no rhonchi, no rales, no accessory muscle use Abdominal: soft, nondistended, nontender to palpation, no guarding Ext: muscle strength 5 out of 5 in all 4 extremities grossly, no gross muscle atrophy, no contractures, positive dorsalis pedis pulse bilateral, no edema Neuro: CN II-XI grossly intact, no gross focal neuro deficits Psych: Alert, oriented, appropriate affect and mood I saw and evaluated the patient during the roque and critical portions of this encounter, and discussed the case in detail with the resident author of this note, I agree with the Assessment and Plan, and my changes, if any, are highlighted in blue. A total of 40 minutes were spent discharging this patient Patient Condition at Discharge: Good Plan - Discharge Summary Discharge Rx Participant: Yes New Discharge Prescriptions: New Aspirin 81 mg PO DAILY #30 tab Losartan [Cozaar] 12.5 mg PO DAILY #30 tab Atorvastatin [Lipitor] 40 mg PO HS #30 tab Bisoprolol [Zebeta] 2.5 mg PO DAILY #30 tab Continue Vitamin D3 (Unknown Strength) 1 dose PO DAILY Discontinued Multivitamins, Thera [Multivitamin (formulary)] 1 tab PO DAILY Vitamin C/Biotin [Hair, Skin and Nails Chew] 1 tab PO DAILY Discharge Medication List Vitamin D3 (Unknown Strength) 1 dose PO DAILY 08/27/24 [History] Aspirin 81 mg PO DAILY #30 tab 08/28/24 [Rx] Atorvastatin [Lipitor] 40 mg PO HS #30 tab 08/28/24 [Rx] Bisoprolol [Zebeta] 2.5 mg PO DAILY #30 tab 08/28/24 [Rx] Losartan [Cozaar] 12.5 mg PO DAILY #30 tab 08/28/24 [Rx] Follow up Appointment(s)/Referral(s): Omar Huntley MD [Medical Doctor] - 1 Week (The office will call you with your appointment) Jaja Moreno MD [RESIDENT] - 1 Week (please call on Saturday to set up your appointment) Patient Instructions/Handouts: *Surgery [facility] - After Heart Catheterization - Medical Center Director Instructions Activity/Diet/Wound Care/Special Instructions: Please see Cardiology and PCP for follow up Discharge/Stand Alone Forms: [facility] Area PCPs Discharge Disposition: HOME SELF-CARE
[2024-08-28] MEDS: LOSARTAN 25 MG TAB PO SCH (16:49)
== END 2024-08-28 17:16 | disposition home or self-care (01) | DRG 280 ==
LOC: EC 10:15 → 3SCARD 11:35
PROVIDERS: ADMIT Student in an Organized Health Care Education/Training Program; ATTEND Student in an Organized Health Care Education/Training Program
PROC: B2111ZZ Fluoroscopy of Multiple Coronary Arteries using Low Osmolar Contrast (ICD-10-PCS; 2024-08-27)
PROC: B2151ZZ Fluoroscopy of Left Heart using Low Osmolar Contrast (ICD-10-PCS; 2024-08-27)
PROC: 4A023N7 Measurement of Cardiac Sampling and Pressure, Left Heart, Percutaneous Approach (ICD-10-PCS; principal; 2024-08-27 14:05)
DX: I21.4 Non-ST elevation (NSTEMI) myocardial infarction (principal); I25.42 Coronary artery dissection; E87.20 Acidosis, unspecified; I25.10 Atherosclerotic heart disease of native coronary artery without angina pectoris; E78.5 Hyperlipidemia, unspecified; E80.6 Other disorders of bilirubin metabolism; Z85.41 Personal history of malignant neoplasm of cervix uteri
CPT/HCPCS: 36415; 71046; 80053; 80061; 80076; 83036; 83735; 83880; 84443; 84484; 85025; 85610; 85730; 87636; 93005; 93306; 93458; 96365; 96366; 99291